=== PATIENT | female | born 1995 | race Two or more races ===

== ENCOUNTER 2019-01-24 23:58 | Emergency (ER) | payer OTHER ==
[~2019-01-24] VITALS: Ht 165.1 cm; Wt 69.4 kg
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
[2019-01-25] MEDS ORDERED: IBUPROFEN600 MG ORAL (00:36)
[2019-01-25 00:40] VITALS: BP_SYST 120; BP_SYST 124; BP_DIAS 80; BP_DIAS 81
--- NOTE | 2019-01-25 00:44 | NUR ---
ED Nurse Note: pt cleared to be d/c per ER provider, pt discharge and aftercare instruction provided w/ prescription, pt education done via discussion and handout, pt advised to follow up with pcp or [facility] medical staff or return to ed if changes in condition, vss, ambulatory w/ steady gait, left w/ all belongings, accompanied by [employer] officers, pt medical clearance given to [employer].
[2019-01-25 00:45] VITALS: BP 120/80
--- NOTE | 2019-01-25 14:29 | Diagnostic Imaging Report ---
Indication: Right wrist pain COMPARISON: None Findings: 3 views of the right wrist were obtained. No acute fractures, malalignment, erosions or periostitis are identified. Soft tissues are unremarkable. Impression: No acute findings.
--- NOTE | 2019-01-25 14:29 | Diagnostic Imaging Report ---
Indication: Right elbow pain Findings: 3 views of the right elbow were obtained. No acute fractures, malalignment, erosions or periostitis are identified. Soft tissues are unremarkable. Impression: Negative for acute injury
== END 2019-01-25 00:45 ==
LOC: EMR 01-25 00:30
DX: S53.401A Unspecified sprain of right elbow, initial encounter (principal); S63.501A Unspecified sprain of right wrist, initial encounter; Y04.8XXA Assault by other bodily force, initial encounter
CPT/HCPCS: 29105; 99284